=== PATIENT | male | born 1950 | race Caucasian/White ===

== ENCOUNTER 2016-07-21 07:44 | Outpatient (CLI) | payer MEDICARE ==
[2016-07-21 08:42] LABS: Anion Gap 12 mmol/L (10-20); BUN (Urea Nitrogen) 15 mg/dL (8.4-25.7); Calc. Creatinine Clearance 0 mL/min (70-130); Calcium 8.9 mg/dL (7.8-10.44); Carbon Dioxide 27 mmol/L (23-31); Chloride 106 mmol/L (98-107); Estimated GFR-MDRD Greater than 90; LDL Cholesterol, Calculated 76 mg/dL
== END 2016-07-21 07:45 | disposition home or self-care (01) ==
LOC: NAV LAB 07:44
PROVIDERS: ATTEND Internal Medicine Cardiovascular Disease
DX: E78.5 Hyperlipidemia, unspecified (principal)
CPT/HCPCS: 36415; 80048; 80061

== ENCOUNTER 2016-09-08 07:52 | Outpatient (CLI) | payer MEDICARE, OTHER ==
[2016-09-08 09:30] LABS: Bilirubin Negative (Negative); Blood, Urine Negative (Negative); Glucose, Urine (Dipstick) Negative (Negative); Ketone, Urine Trace mg/dL (Negative); Nitrite Negative (Negative); Protein, Urine (Dipstick) Negative (Neg-Trace); Urobilinogen 0.2 mg/dL (0.2-1.0)
[2016-09-08 09:34] LABS: #Basophils 0.2 thou/uL (0.0-0.2); #Eosinphils 0.5 thou/uL (0.0-0.7); #Lymphocytes 4.1 thou/uL (1.20-3.40); #Monocytes 0.7 thou/uL (0.11-0.59); #Neutrophils 7.6 thou/uL (1.40-6.50); %Basophils 1.4 % (0.0-1.0); %Eosinophils 3.6 % (0.0-10.0); %Lymphocytes 31.5 % (21.0-51.0); %Monocytes 5.6 % (0.0-10.0); Mean Platelet Volume 5.3 fL (7.4-10.4); Red Blood Cell (RBC) Count 3.79 mill/uL (4.70-6.10); White Blood Cell (WBC) Count 13.1 thou/uL (4.8-10.8)
[2016-09-08 10:12] LABS: Hemoglobin A1c 6.1 % (4.0-6.0)
== END 2016-09-08 07:53 ==
LOC: NAVSJIPCSP 07:52 → NAV LAB 07:53
PROVIDERS: ATTEND Nurse Practitioner Family
DX: E03.9 Hypothyroidism, unspecified (principal); E11.9 Type 2 diabetes mellitus without complications; R35.1 Nocturia
CPT/HCPCS: 81003; 83036; 84443; 85025; 87086; G0103

== ENCOUNTER 2017-07-17 08:28 | Outpatient (CLI) | payer MEDICARE ==
--- NOTE | 2017-07-17 08:59 | RAD ---
PA AND LATERAL CHEST XRAY: DATE: 07/17/17. HISTORY: Cough. COMPARISON: 02/01/16. FINDINGS: There are increased interstitial densities present at each lung base. Findings may be related to bib asilar areas of pneumonitis or atelectasis. Continued followup is recommended. Cardiac silhouette i s stable in size and at the upper limits of normal. Pulmonary vasculature is within normal limits. No other interval change. IMPRESSION: Mild increased interstitial densities at each lung base. Findings could be related to either atelect asis or infectious process. Followup evaluation is recommended. POS: [facility]
== END 2017-07-17 08:29 | disposition home or self-care (01) ==
LOC: NAV RAD 08:28
DX: R05 Cough (principal)
CPT/HCPCS: 71046

== ENCOUNTER 2017-09-21 07:49 | Outpatient (CLI) | payer MEDICARE ==
--- NOTE | 2017-09-21 08:53 | RAD ---
PA AND LATERAL VIEWS OF CHEST: Date: 09/21/17 HISTORY: Pneumonia. Shortness of breath. FINDINGS: Comparison made with exam of 07/17/17. The heart size is normal. The lungs are well expanded with stable chronic changes. No lobar consolida tion, pneumothoraces, or pleural effusions are seen. There are degenerative changes in the spine. IMPRESSION: No radiographic evidence of acute cardiopulmonary process. POS: [facility]
== END 2017-09-21 07:50 | disposition home or self-care (01) ==
LOC: NAV RAD 07:49
DX: J18.9 Pneumonia, unspecified organism (principal)
CPT/HCPCS: 71046

== ENCOUNTER 2019-01-11 06:39 | Emergency (ER) | payer MEDICARE, OTHER ==
[2019-01-11] MEDS ORDERED: methylPREDNISolone Acetate 40 mg/ml Vial ONE (07:17)
== END 2019-01-11 07:32 | disposition home or self-care (01) ==
LOC: NAV ERS 06:39
DX: L23.7 Allergic contact dermatitis due to plants, except food (principal); E78.00 Pure hypercholesterolemia, unspecified; E11.9 Type 2 diabetes mellitus without complications; Z87.891 Personal history of nicotine dependence; Z86.73 Personal history of transient ischemic attack (TIA), and cerebral infarction without residual deficits; Z79.84 Long term (current) use of oral hypoglycemic drugs; Z79.82 Long term (current) use of aspirin; Z79.899 Other long term (current) drug therapy
CPT/HCPCS: 96372; 99283; J1030

== ENCOUNTER 2019-01-24 19:00 | Emergency (ER) | payer MEDICARE, OTHER ==
[2019-01-24] MEDS ORDERED: Sodium Chloride 0.9% 1,000 ML ONE (19:13)
[2019-01-24 19:49] LABS: ALT (SGPT) 18 U/L (8-55); AST (SGOT) 20 U/L (5-34); Albumin 4.8 g/dL (3.4-4.8); Alkaline Phosphatase 83 U/L (40-150); Anion Gap 22 mmol/L (10-20); BUN (Urea Nitrogen) 24 mg/dL (8.4-25.7); Bilirubin, Total 0.8 mg/dL (0.2-1.2); CK (CPK) 151 U/L (30-200); Calc. Creatinine Clearance 0 mL/min (70-130); Calcium 10.9 mg/dL (7.8-10.44); Carbon Dioxide 24 mmol/L (23-31); Chloride 97 mmol/L (98-107); Estimated GFR-MDRD 37; Globulin 3.9 g/dL (2.4-3.5); Glucose 161 mg/dL (80-115); Potassium 4.2 mmol/L (3.5-5.1); Protein, Total 8.7 g/dL (5.8-8.1); Sodium 139 mmol/L (136-145)
== END 2019-01-24 20:40 | disposition home or self-care (01) ==
LOC: NAV ERS 19:00
DX: E86.0 Dehydration (principal); Z87.891 Personal history of nicotine dependence; Z86.73 Personal history of transient ischemic attack (TIA), and cerebral infarction without residual deficits; E78.00 Pure hypercholesterolemia, unspecified; Z79.899 Other long term (current) drug therapy
CPT/HCPCS: 80053; 82550; 99283; J7050

== ENCOUNTER 2019-11-03 11:52 | Emergency (ER) | payer MEDICARE | END 2019-11-03 12:07 | disposition home or self-care (01) | LOC: NAV ERS 11:52 | DX: L23.7 Allergic contact dermatitis due to plants, except food (principal); E03.9 Hypothyroidism, unspecified; E78.00 Pure hypercholesterolemia, unspecified; R73.03 Prediabetes; Z86.73 Personal history of transient ischemic attack (TIA), and cerebral infarction without residual deficits; Z87.891 Personal history of nicotine dependence; Z79.84 Long term (current) use of oral hypoglycemic drugs; Z79.899 Other long term (current) drug therapy; Z79.82 Long term (current) use of aspirin | CPT/HCPCS: 99282 ==